=== PATIENT | male | born 1985 | race Caucasian/White ===

== ENCOUNTER 2025-11-02 18:18 | Emergency (ER) | payer OTHER, SELFPAY ==
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
[2025-11-02 18:18] VITALS: BP 113/88; PULSE 89; RESP 16; TEMP 36.7; O2SAT 97
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
[2025-11-02] MEDS: KETOROLAC 10 MG TABLET PO (19:09)
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
[2025-11-02 20:34] VITALS: BP 132/70; PULSE 78; RESP 16; O2SAT 97
== END 2025-11-02 20:34 | disposition home or self-care (01) ==
PROVIDERS: Emergency Provider Emergency Medicine; Referring Provider Internal Medicine
DX: T14.8XXA Other injury of unspecified body region, initial encounter (principal); V49.49XA Driver injured in collision with other motor vehicles in traffic accident, initial encounter
CPT/HCPCS: 71120; 99283; A9270